=== PATIENT | female | born 1980 | race Two or more races ===

== ENCOUNTER 2023-03-30 15:07 | Emergency (ER) | payer OTHER ==
[~2023-03-30] VITALS: Ht 157.5 cm; Wt 59.9 kg
== END 2023-03-30 19:31 | disposition home or self-care (01) ==
LOC: ER 15:07
DX: B34.8 Other viral infections of unspecified site (principal); Z20.822 Contact with and (suspected) exposure to COVID-19

== ENCOUNTER 2023-04-23 17:09 | Emergency (ER) | payer OTHER ==
[~2023-04-23] VITALS: Ht 157.5 cm; Wt 60.8 kg
[2023-04-23] MEDS ORDERED: SINGULAIR5 MG (17:22)
== END 2023-04-23 21:24 | disposition home or self-care (01) ==
LOC: ER 17:09
PROVIDERS: General Practice
DX: R30.0 Dysuria (principal)